=== PATIENT | female | born 1965 | race Caucasian/White ===

== ENCOUNTER 2022-09-04 19:16 | Emergency (ER) | payer OTHER ==
[2022-09-04 19:22] VITALS: TEMP 98.5; BMI 33.6
[2022-09-04] MEDS ORDERED: diazePAM 5 MG TABLET PO ONE ×2 (20:03→20:05)
[2022-09-04] MEDS ORDERED: DEXAMETHASONE SOD PHOSPHATE 10 MG/1 ML VIAL IVPUSH ONE (20:04)
[2022-09-04] MEDS ORDERED: LIDOCAINE 5% TOPICAL PATCH TP ONE (20:04)
[2022-09-04] MEDS ORDERED: diazePAM 5 MG TABLET ONE (20:11)
[2022-09-04] MEDS ORDERED: LIDOCAINE 5% TOPICAL PATCH ONE (20:12)
[2022-09-04] MEDS ORDERED: DEXAMETHASONE SOD PHOSPHATE 10 MG/1 ML VIAL ONE (20:12)
[2022-09-04 20:25] LABS: BASO % 0.4 % (0-2.0); EOS % 2.3 % (0-4.5); HEMATOCRIT 41.5 % (32.4-45.2); HEMOGLOBIN 13.8 GM/dL (10.7-15.3); LYMPH % 28.2 % (8-40); MCHC 33.3 g/dl (32.0-36.0); MEAN CELL VOLUME 87.2 fl (80-96); MEAN PLT VOLUME 9.5 fl (7.5-11.1); MONO % 4.9 % (3.8-10.2); NEUT % 64.2 % (42.8-82.8); PLATELET COUNT 366 10^3/uL (134-434); RBC 4.76 M/mm3 (3.60-5.2); RDW 14.2 % (11.6-15.6); WHITE BLOOD COUNT 11.1 K/mm3 (4.0-10.0)
[2022-09-04 20:46] LABS: POTASSIUM 3.8 mmol/L (3.5-5.1)
[2022-09-04 20:48] LABS: CALCIUM 9.5 mg/dL (8.5-10.1)
[2022-09-04 20:49] LABS: ALBUMIN 4.1 g/dl (3.4-5.0); BLOOD UREA NITROGEN 14.7 mg/dL (7-18)
[2022-09-04 20:52] LABS: CREATININE 0.7 mg/dL (0.55-1.3)
[2022-09-04 20:54] LABS: BILIRUBIN,TOTAL 0.2 mg/dL (0.2-1); TOT PROT 8.1 g/dl (6.4-8.2)
[2022-09-04 21:57] VITALS: BP 150/89; PULSE 61; RESP 17
[2022-09-04] MEDS ORDERED: LIDOCAINE PATCH REMOVAL MC SCH (22:00)
== END 2022-09-04 21:57 | disposition home or self-care (01) ==
LOC: JER 19:16
PROC: 3E033GC Introduction of Other Therapeutic Substance into Peripheral Vein, Percutaneous Approach (ICD-10-PCS; principal; 2022-09-04)
DX: M25.512 Pain in left shoulder (principal)
CPT/HCPCS: 36415; 71046-TC-FY; 80053; 84443; 84484; 85025; 93005; 93010; 99285-25; J1100

== ENCOUNTER 2022-11-09 15:06 | Emergency (ER) | payer OTHER ==
[2022-11-09 15:17] VITALS: BMI 24.7
[2022-11-09] MEDS ORDERED: SODIUM CHLORIDE 0.9% 500 ML INFUS.BAG IV ONE (15:48)
[2022-11-09] MEDS ORDERED: ACETAMINOPHEN 1000 MG/100 ML BAG IVPB ONE (15:48)
[2022-11-09] MEDS ORDERED: ONDANSETRON 4 MG/2 ML VIAL IVPUSH ONE (15:48)
[2022-11-09] MEDS ORDERED: ACETAMINOPHEN INJECTION 100 ML IVPB ONE (16:19)
[2022-11-09] MEDS ORDERED: ONDANSETRON 4 MG/2 ML VIAL ONE (16:19)
[2022-11-09 16:55] LABS: BASO % 1.2 % (0-2.0); EOS % 0.1 % (0-4.5); HEMOGLOBIN 12.5 GM/dL (10.7-15.3); LYMPH % 13.3 % (8-40); MCH 28.7 pg (25.7-33.7); MCHC 32.9 g/dl (32.0-36.0); MEAN PLT VOLUME 9.1 fl (7.5-11.1); MONO % 4.9 % (3.8-10.2); NEUT % 80.5 % (42.8-82.8); PLATELET COUNT 332 10^3/uL (134-434); RBC 4.37 M/mm3 (3.60-5.2); RDW 14.8 % (11.6-15.6); WHITE BLOOD COUNT 18.8 K/mm3 (4.0-10.0)
[2022-11-09 17:02] LABS: INR 1.14 (0.83-1.09); PROTHROMBIN TIME (PATIENT) 13.2 SEC (9.7-13.0)
[2022-11-09 17:05] LABS: ACTIVATED PTT 27.6 SECONDS (25.2-36.5)
[2022-11-09 17:15] LABS: EPI CELLS 3 /uL (0-25.1); HYALINE CASTS 0 /uL (0-3.1); URINE APPEARANCE CLEAR; URINE BACTERIA 158 /uL (0-1359); URINE BILIRUBIN NEGATIVE (NEGATIVE); URINE COLOR YELLOW; URINE GLUCOSE (UA) NEGATIVE (NEGATIVE); URINE KETONE NEGATIVE (NEGATIVE); URINE LEUK ESTERASE NEGATIVE (NEGATIVE); URINE NITRITE NEGATIVE (NEGATIVE); URINE PROTEIN TRACE (NEGATIVE); URINE RBC 49 /uL (0-23.9); URINE UROBILINOGEN 0.2 mg/dL (0.2-1.0); URINE WBC 5 /uL (0-25.8)
[2022-11-09 17:38] LABS: CALCIUM 9.4 mg/dL (8.5-10.1)
[2022-11-09 17:39] LABS: ALBUMIN 3.6 g/dl (3.4-5.0); BLOOD UREA NITROGEN 13.5 mg/dL (7-18); MAGNESIUM 2.1 mg/dL (1.8-2.4)
[2022-11-09 17:42] LABS: CREATININE 0.9 mg/dL (0.55-1.3)
[2022-11-09 17:43] LABS: BILIRUBIN,TOTAL 0.1 mg/dL (0.2-1); TOT PROT 7.4 g/dl (6.4-8.2)
[2022-11-09] MEDS ORDERED: morphine SULFATE 4 MG/ML VIAL IVPUSH ONE (17:49)
[2022-11-09] MEDS ORDERED: morphine SULFATE 4 MG/ML VIAL ONE (18:26)
[2022-11-09] MEDS ORDERED: TAMSULOSIN HCL 0.4 MG CAP PO ONE (19:58)
[2022-11-09 20:10] VITALS: BP 165/60; PULSE 70; RESP 16; TEMP 99.1
[2022-11-09] MEDS ORDERED: TAMSULOSIN HCL 0.4 MG CAP ONE (20:12)
== END 2022-11-09 20:27 | disposition home or self-care (01) ==
LOC: JER 15:06
PROC: 3E033NZ Introduction of Analgesics, Hypnotics, Sedatives into Peripheral Vein, Percutaneous Approach (ICD-10-PCS; principal; 2022-11-09)
PROC: 3E033GC Introduction of Other Therapeutic Substance into Peripheral Vein, Percutaneous Approach (ICD-10-PCS; 2022-11-09)
PROC: 3E033GC Introduction of Other Therapeutic Substance into Peripheral Vein, Percutaneous Approach (ICD-10-PCS; 2022-11-09)
DX: R10.31 Right lower quadrant pain (principal); R11.2 Nausea with vomiting, unspecified; N20.0 Calculus of kidney; R63.0 Anorexia
CPT/HCPCS: 36415; 74177-TC; 80053; 81003; 83735; 85025; 85610; 85730; 86850; 86900; 86901; 87086; 96374; 96375; 99285-25

== ENCOUNTER 2022-11-23 17:40 | Observation (INO) | payer OTHER ==
[2022-11-23 17:46] VITALS: RESP 18
[2022-11-23 20:58] LABS: HEMATOCRIT 38.7 % (32.4-45.2); HEMOGLOBIN 12.4 GM/dL (10.7-15.3); MCH 28.3 pg (25.7-33.7); MCHC 32.1 g/dl (32.0-36.0); MEAN CELL VOLUME 88.3 fl (80-96); MEAN PLT VOLUME 8.3 fl (7.5-11.1); PLATELET COUNT 540 10^3/uL (134-434); RBC 4.38 M/mm3 (3.60-5.2); RDW 14.1 % (11.6-15.6); WHITE BLOOD COUNT 11.8 K/mm3 (4.0-10.0)
[2022-11-23 21:01] LABS: EPI CELLS 7 /uL (0-25.1); HYALINE CASTS 1 /uL (0-3.1); PH,URINE 5.5 (5.0-8.0); URINE APPEARANCE CLEAR; URINE BACTERIA 84 /uL (0-1359); URINE BILIRUBIN NEGATIVE (NEGATIVE); URINE COLOR YELLOW; URINE GLUCOSE (UA) NEGATIVE (NEGATIVE); URINE KETONE NEGATIVE (NEGATIVE); URINE LEUK ESTERASE NEGATIVE (NEGATIVE); URINE NITRITE NEGATIVE (NEGATIVE); URINE PROTEIN 1+ (NEGATIVE); URINE RBC 32 /uL (0-23.9); URINE UROBILINOGEN 0.2 mg/dL (0.2-1.0); URINE WBC 14 /uL (0-25.8)
[2022-11-23] MEDS ORDERED: FLUTICASONE PROP 0.05% 16 GM NASAL SPRAY NS PRN (21:15)
[2022-11-23 21:26] LABS: CHLORIDE 106 mmol/L (98-107); POTASSIUM 4.4 mmol/L (3.5-5.1); SODIUM 142 mmol/L (136-145)
[2022-11-23 21:27] LABS: CALCIUM 9.8 mg/dL (8.5-10.1)
[2022-11-23 21:28] LABS: ALBUMIN 3.5 g/dl (3.4-5.0); ANION GAP 7 MMOL/L (8-16); BLOOD UREA NITROGEN 14.3 mg/dL (7-18); CO2 29 mmol/L (21-32); GLUCOSE,RANDOM 92 mg/dL (74-106)
[2022-11-23 21:31] LABS: CREATININE 0.7 mg/dL (0.55-1.3); SGPT/ALT 24 U/L (13-61)
[2022-11-23 21:33] LABS: BILIRUBIN,TOTAL < 0.1 mg/dL (0.2-1); SGOT/AST 16 U/L (15-37); TOT PROT 7.4 g/dl (6.4-8.2)
[2022-11-23 21:34] LABS: ALK PHOS 95 U/L (45-117)
[2022-11-23] MEDS ORDERED: NITROFURANTOIN MACROCRYSTAL 50 MG CAPSULE (FP) ONE (21:58)
[2022-11-23] MEDS ORDERED: NITROFURANTOIN MACROCRYSTAL 50 MG CAPSULE (FP) PO SCH (22:00)
[2022-11-24 00:26] VITALS: BMI 33.0
[2022-11-24] MEDS ORDERED: SODIUM CHLORIDE 0.9% 500 ML INFUS.BAG IV SCH (00:30)
[2022-11-24] MEDS ORDERED: NITROFURANTOIN MACROCRYSTAL 50 MG CAPSULE (FP) PO SCH ×3 (00:40→10:02)
[2022-11-24] MEDS ORDERED: SODIUM CHLORIDE 1,000 ML IV SCH (00:45)
[2022-11-24] MEDS ORDERED: TAMSULOSIN HCL 0.4 MG CAP PO SCH ×2 (10:00)
[2022-11-24] MEDS: LISINOPRIL 20 MG TABLET PO SCH ×2 (10:09→10:12)
[2022-11-24 10:58] VITALS: BP 151/82; PULSE 65; TEMP 98
== END 2022-11-24 11:11 | disposition home or self-care (01) ==
LOC: JER 17:40 → JERBED 21:28 → INTOOBSV 21:28 → J6S 23:00
PROVIDERS: ADMIT Internal Medicine; ATTEND Internal Medicine
PROC: 3E0337Z Introduction of Electrolytic and Water Balance Substance into Peripheral Vein, Percutaneous Approach (ICD-10-PCS; principal; 2022-11-23)
DX: N23 Unspecified renal colic (principal); N13.30 Unspecified hydronephrosis; Z88.0 Allergy status to penicillin; Z88.8 Allergy status to other drugs, medicaments and biological substances; I10 Essential (primary) hypertension
CPT/HCPCS: 36415; 74177-TC; 80053; 81003; 85027; 87086; 93005; 93010; 96360; 99285-25; G0378; Q9967

== ENCOUNTER → 2023-02-02 | Day surgery (SDC) | payer OTHER | END | disposition home or self-care (01) | LOC: JASU-SURG 04:05 | PROVIDERS: ATTEND Urology | DX: Z53.8 Procedure and treatment not carried out for other reasons (principal) ==